=== PATIENT | male | born 1955 | race Caucasian/White ===

== ENCOUNTER 2017-09-02 19:58 | Outpatient (CLI) | payer MEDICARE, OTHER ==
[~2017-09-02 19:58] MED LIST: ATEN50TA PO; CALC-80 PO; CHOL400C8 PO; HYDR-34 PO; HYDR-3454 PO; IPRA4AER IH; LISI-556 PO; MTH750T PO; NAPR-243 PO; NAPR220C11 PO; ROSU5TAB; TRM50T PO
== END 2017-09-03 06:30 | disposition home or self-care (01) ==
LOC: SLEEP 19:58
PROVIDERS: ATTEND Nurse Practitioner Family
DX: G47.33 Obstructive sleep apnea (adult) (pediatric) (principal)
CPT/HCPCS: 95811

== ENCOUNTER 2017-11-25 05:59 | Inpatient (IN) | payer MEDICARE, OTHER ==
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
[~2017-11-25] VITALS: Ht 182.9 cm; Wt 148.0 kg
[~2017-11-25 05:59] MED LIST changes: +ALBU2.5V4 NEB; +BUDE10.2 IH; +CALC-50 PO; +CYCL5.5D OU; +GLUC1CAP14 PO; +IPRA3AMP31 IH
[2017-11-25 06:10] VITALS: BP 140/73
[2017-11-25] MEDS: LACTATED RINGERS 1,000 ML IV PRN ×2 (06:25→08:00)
[2017-11-25] MEDS ORDERED: CEFUROXIME 1.5 GM (ZINACEF) VIAL ONE ×2 (06:46→06:48)
[2017-11-25] MEDS ORDERED: NS (IVPB) 50 ML ONE (06:48)
[2017-11-25] MEDS ORDERED: fentaNYL INJECTION 100 MCG/2 ML AMP ONE ×2 (06:52→08:27)
[2017-11-25] MEDS ORDERED: MIDAZOLAM 2 MG/2 ML (VERSED) VIAL ONE (06:52)
--- NOTE | 2017-11-25 07:24 | Progress Note-Pre Operative ---
Pre-Operative Progress Note H&P Reviewed The H&P was reviewed, patient examined and no changes noted. Date Seen by Provider: Nov 25, 2017 Time Seen by Provider: 07:11 Date H&P Reviewed: Nov 25, 2017 Time H&P Reviewed: 07:11 Pre-Operative Diagnosis: left knee primary osteoarthritis MARLI BRANDON MD Nov 25, 2017 07:24
[2017-11-25] MEDS ORDERED: LIDOCAINE PF 2% 5 ML (XYLOCAINE) VIAL ONE (07:25)
[2017-11-25] MEDS ORDERED: proPOfol 200 MG/20 ML (DIPRIVAN) VIAL IV ONE (07:25)
[2017-11-25] MEDS: NS IV 1000 ML 1,000 ML IV SCH ×2 (07:25→11:02)
[2017-11-25] MEDS ORDERED: ROPIVACAINE 5MG/ML 30ML VIAL ONE (07:25)
--- NOTE | 2017-11-25 07:25 | Progress Note-Post Operative ---
Post-Operative Progess Note Surgeon (s)/Hvac Sheet Metal Installer (s) Surgeon MARLI BRANDON MD Hvac Sheet Metal Installer: Jose Alcantara Pre-Operative Diagnosis left knee primary osteoarthritis Post-Operative Diagnosis left knee primary osteoarthritis Procedure & Operative Findings Date of Procedure 11/25/17 Procedure Performed/Findings left total knee arthroplasty Anesthesia Type GETA plus regional Estimated Blood Loss Estimated blood loss (mL): minimal Specimens/Packing Specimens Removed none Packing: none MARLI BRANDON MD Nov 25, 2017 07:25
[2017-11-25] MEDS ORDERED: OXYC1TAB87 PO (07:27)
--- NOTE | 2017-11-25 07:29 | D/C HH Face to Face Order ---
D/C Face to Face Orders Instructions for Patient Patient Instructions/FollowUp: left total knee arthroplasty Physician to follow Patient: 3 weeks Discharge Diet for Home: Regular Diet Patient Data-Allergies,Ht & Wt Patient Allergies: Coded Allergies: No Known Drug Allergies (Unverified , 11/18/17) Height (Feet): 6 Height (Inches): 0.00 Weight (Pounds): 326 Weight (Ounces): 6.0 Home Health Need/Face to Face Date of Face to Face: Nov 25, 2017 Clinical Findings: Instability, Muscle weakness, Pain with ambulation, Unsteady gait I have seen Pt [id number]: Yes Discharged To: Home Diagnosis/Conditions: left total knee arthroplasty Patient is Homebound due to: Mercedes fall risk due to instabilty, Muscle weakness , Pain w/ambulation Homebound Status Due to the above stated illness, injury or surgical procedure (medical condition or diagnosis) and associated clinical findings, the patient is homebound because of his/her inability to leave home except with aid of a supportive device and/or person AND leaving the home requires a considerable and taxing effort or is medically contraindicated. Pt req the following assistanc: [facility] Health Nursing Orders Home Health Services Order: Physical Therapy-Evaluate & Treat Home Health Infusion Therapy Line Start Date: Nov 25, 2017 Line Start Time: 0620 Line Type: Peripheral IV Site Location: Hand Therapy Orders Therapy Orders: Physical Therapy, PT to assess for OT (DC left knee tiburcio and apply steri strips 12/09/17) Certify Stmt I certify that this patient is under my care and that I, a nurse practitioner or a physician; a public aid eligibility assistant working with me, had a face to face encounter that - meets the physician face to face encounter requirements with this patient as dated. MARLI BRANDON MD Nov 25, 2017 07:29
[2017-11-25] MEDS ORDERED: diphenhydrAMINE 50 MG/ML INJ (BENADRYL) IVP PRN (07:30)
[2017-11-25] MEDS ORDERED: INTRA-ARTICULAR IU ONE ×5 (07:30)
[2017-11-25] MEDS ORDERED: ONDANSETRON 4 MG/2 ML (SDV) Z0FRAN IVP PRN ×2 (07:30→09:30)
[2017-11-25] MEDS ORDERED: ACETAMINOPHEN 325 MG TABLET PO PRN (07:30)
[2017-11-25] MEDS ORDERED: SEVOFLURANE (ULTANE) 15 ML INHAL SOLN ONE ×7 (08:14→09:33)
[2017-11-25] MEDS ORDERED: TRANEXAMIC ACID 100 MG/ML 10 ML INJECTION IV ONE (08:14)
[2017-11-25] MEDS ORDERED: DEXAMETHASONE 10 MG/ML (DECADRON) 1 ML VIAL ONE (08:19)
[2017-11-25] MEDS ORDERED: ROCURONIUM 10 MG/ML 5 ML SYRINGE IV ONE (08:20)
[2017-11-25] MEDS ORDERED: HYDROmorphone 2 MG/ML VIAL (DILAUDID) IV ONE (09:30)
[2017-11-25] MEDS ORDERED: CEFUROXIME 1.5 GM/NS 50 ML IVPB IV ONE ×2 (09:30)
[2017-11-25] MEDS ORDERED: MEPERIDINE (DEMEROL) INJ 50 MG/ML IVP ONE (09:30)
[2017-11-25] MEDS: morphine INJ 10 MG/ML 1ML (SYR OR VIAL) IVP ONE (09:46)
--- NOTE | 2017-11-25 10:04 | Diagnostic Imaging Report ---
EXAMINATION: Left knee radiographs, two views. COMPARISON: None. HISTORY: 62-year-old male, left total knee replacement. FINDINGS: There are anterior skin tiburcio. There is a left total knee prosthesis. The hardware appears intact. Intra-articular and soft tissue gas likely reflects recent postoperative state of the patient. There is no identified acute fracture. There is thickening of the visualized fibular diaphyseal cortex. There are vascular calcifications noted. IMPRESSION: 1. Left total knee prosthesis without identified complication. Dictated by: Dictated on workstation # [id number]
[2017-11-25 10:30] VITALS: BP 128/60
[2017-11-25] MEDS: morphine PCA 30 MG/30 ML VIAL IV PRN (11:03)
[2017-11-25] MEDS: oxyCODONE/APAP 5/325MG (PERCOCET 5) TABLET PO PRN ×3 (11:18→20:36)
--- NOTE | 2017-11-25 11:29 | Progress Note-Standard ---
Standard Progress Note Progress Notes/Assess & Plan Date Seen by Provider: Nov 25, 2017 Time Seen by Provider: 09:30 Progress/Assessment & Plan post op check no complaints radiographs--HW well positioned without fracture LLE--intact DF and PF of toes and ankle. Sensation intact throughout. Brisk cap refill with 2 plus DP pules s/p LTKA mobilize as able MARLI BRANDON MD Nov 25, 2017 11:29
[2017-11-25 12:00] VITALS: BP 131/64
--- NOTE | 2017-11-25 14:18 | OPERATIVE REPORT ---
DATE OF SERVICE: 11/25/2017 PREOPERATIVE DIAGNOSIS: Left knee primary osteoarthritis. POSTOPERATIVE DIAGNOSIS: Left knee primary osteoarthritis. PROCEDURE: Left total knee arthroplasty. SURGEON: Jameel Cruz MD. LIFT MECHANIC: PEDRO Nazario, who assisted throughout the procedure, provided retraction, patient positioning and wound closure. ANESTHESIA: General endotracheal plus adductor canal block by Eduardo Jose CRNA. TOURNIQUET TIME: 75 minutes at 300 mmHg. ESTIMATED BLOOD LOSS: Minimal. DRAINS: None. COMPLICATIONS: None. POSTOPERATIVE PLAN: Routine protocol. The patient was transferred to the recovery room, awake and in stable condition. MATERIALS: MicroPort cemented size 6 femur, cemented size 6 tibia with a 10 mm insert and a cemented size 35 patellar button. STATEMENT OF MEDICAL NECESSITY: The patient is a 62-year-old gentleman with longstanding progressive left knee pain. Radiographs revealed severe medial and patellofemoral arthrosis. He has undergone treatment with injections, arthroscopy, anti-inflammatories and activity modifications without relief. Due to functional impairment and failure to improve with conservative measures, the patient elected to proceed with surgical intervention. DESCRIPTION OF PROCEDURE: After risks and benefits of procedure were discussed and questions were answered, an informed consent was signed and placed on the chart. The operative site was confirmed in the preoperative holding area initialed by the surgeon. The patient was transported to the operating room. After adequate levels of regional plus general endotracheal anesthetic were obtained, timeout was called confirming the operative site. The left lower extremity was then prepped and draped in the usual sterile fashion. With the leg elevated and the knee flexed, tourniquet was inflated to 300 mmHg. A standard anterior approach was utilized. Hemostasis was obtained with cautery. A medial parapatellar arthrotomy was performed leaving 1 cm cuff on the patella for later reattachment. A portion of the fat pad was resected. A subperiosteal release was then carefully performed on the proximal medial tibia, being careful to stay on the bony surface. The ACL was resected. The intramedullary guide was passed into the femur. The distal cutting block was placed. Distal cut was made and the femur was sized to a size 6. The 6 cutting block was placed parallel to the epicondylar axis and the cuts were made from posterior to anterior. Subperiosteal release was then carefully performed on the posterior distal femur being careful to stay on the bony surface. The intramedullary guide was then passed into the tibia and the cutting block was placed. The drop abdullahi transected the intermalleolar axis and the cut was made. A 6 baseplate was placed and provided excellent coverage. Drop abdullahi transected the intermalleolar axis and this was prepared with a drill and keel punch. The femoral trial was placed and the trochlear cut was made. The patella was prepared by resecting 10 mm off the undersurface of the patella. The peg guide was placed and the peg holes were drilled. The 35 trial was placed. Full extension was easily obtained, 120 degrees of flexion with gravity was easily obtained. There was no anterior/posterior or medial/lateral laxity in flexion or extension. The trials were removed. The joint was irrigated with pulse lavage. A periarticular block was placed in the posterior capsule, medial and lateral retinaculum and extensor mechanism as well as the subcutaneous tissues. Bone ends were irrigated and dried. The tibial baseplate was cemented into position. Excessive cement was removed. Superior surface was irrigated and dried and the polyethylene insert was placed. The distal femur was irrigated and dried and the femoral prosthesis was cemented into position. Excessive cement was removed. The knee was brought in full extension until the cement cured. The undersurface of patella was irrigated and dried and the patellar button was cemented in position. Excessive cement was removed. Once the cement had cured, the undersurface of the patella was irrigated and dried. The patellar button was cemented in position. Once the cement had cured, the knee was taken through range of motion. Full extension was easily obtained, 120 degrees of flexion with gravity was easily obtained. There was no anterior/posterior or medial/lateral laxity in flexion or extension. The joint was further irrigated with pulse lavage. The arthrotomy was closed with #2 Tevdek in [id number]-mx-dddoc interrupted fashion. The knee was flexed. The patella tracked well. There was no undue tension at the repair site. The subcutaneous tissues were irrigated and dried. A 0 Vicryl was used for deep subcutaneous tissue, 2-0 Vicryl for the superficial subcutaneous tissue, and tiburcio used on the skin. Soft dressing was applied and the patient was transferred to the recovery room awake in stable condition after the tourniquet was deflated. Job ID: [id number] DocumentID: [id number] Dictated Date: 11/25/2017 09:31:18 Web Methods Developer Date: 11/25/2017 14:18:21 Dictated By: JAMEEL CRUZ MD
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
[2017-11-25] MEDS: CEFUROXIME INJECTION 750 MG in NS (IVPB) 50 ML IV SCH (14:54)
[2017-11-25] MEDS: SENNA W/DOCUSATE (SENOKOT S) TABLET PO SCH ×2 (14:55→20:36)
[2017-11-25 16:43] VITALS: BP 143/63
[2017-11-25 19:46] VITALS: BP 134/63
[2017-11-26] MEDS: NS IV 1000 ML 1,000 ML IV SCH ×2 (00:05→12:32)
[2017-11-26] MEDS: CEFUROXIME INJECTION 750 MG in NS (IVPB) 50 ML IV SCH (00:05)
[2017-11-26 00:43] VITALS: BP 143/65
[2017-11-26 04:39] VITALS: BP 138/65
[2017-11-26] MEDS: oxyCODONE/APAP 5/325MG (PERCOCET 5) TABLET PO PRN ×9 (04:56→22:27)
[2017-11-26 06:02] LABS: HEMOGLOBIN 11.2 G/DL (13.3-17.7)
[2017-11-26] MEDS: MULTIVIT W/MINERALS TAB (THERAGRAN M) PO SCH (06:13)
--- NOTE | 2017-11-26 07:52 | Anesthesia-General Post-Op ---
General Patient Condition Mental Status/LOC: Same as Preop Cardiovascular: Satisfactory Nausea/Vomiting: Absent Respiratory: Satisfactory Pain: Controlled Complications: Absent Post Op Complications Complications None Follow Up Care/Instructions Patient Instructions None needed. Anesthesia/Patient Condition Patient Condition Patient is doing well, no complaints, stable vital signs, no apparent adverse anesthesia problems. No complications reported per nursing. D/C home per [facility] [place] Criteria: Yes NELLY HOLLAND CRNA Nov 26, 2017 07:52
--- NOTE | 2017-11-26 07:53 | Progress Note-Standard ---
Standard Progress Note Progress Notes/Assess & Plan Date Seen by Provider: Nov 26, 2017 Time Seen by Provider: 07:52 Progress/Assessment & Plan post op check no complaints radiographs--HW well positioned without fracture LLE--intact DF and PF of toes and ankle. Sensation intact throughout. Brisk cap refill with 2 plus DP pules s/p LTKA mobilize as able Final Diagnosis No complaints Vital Signs Date Time Temp Pulse Resp B/P (MAP) Pulse Ox O2 Delivery O2 Flow Rate FiO2 11/26/17 07:42 94 Nasal Cannula 4.00 11/26/17 06:00 19 11/26/17 04:39 98.5 62 19 138/65 (89) 97 Nasal Cannula 4.00 11/26/17 02:22 96 NIV CPAP 4.00 11/26/17 00:43 98.7 65 19 143/65 (91) 97 Nasal Cannula 4.00 11/25/17 22:55 96 NIV CPAP 4.00 11/25/17 20:30 Nasal Cannula 4.00 11/25/17 19:46 97.4 68 20 134/63 (86) 95 Nasal Cannula 4.00 11/25/17 18:43 96 Nasal Cannula 4.00 11/25/17 16:43 97.5 61 20 143/63 (89) 95 Nasal Cannula 4.00 11/25/17 16:12 94 Nasal Cannula 4.00 11/25/17 12:00 97.3 70 20 131/64 (86) 97 Nasal Cannula 4.00 11/25/17 11:03 18 11/25/17 10:40 94 Nasal Cannula 4.00 11/25/17 10:30 97.3 69 20 128/60 (82) 95 Nasal Cannula 4.00 I & O 11/26/17 07:00 Intake Total 4040 ml Output Total 1775 ml Balance 2265 ml Laboratory Tests Test 11/26/17 05:36 Range/Units Hemoglobin 11.2 L 13.3-17.7 G/DL Hematocrit 35 L 40-54 % LLE--dressing intact. NVI distally . No calf tenderness. Neg Hang's s/p LTKA Mobilize MARLI BRANDON MD Nov 26, 2017 07:53
[2017-11-26 08:00] VITALS: BP 120/55
[2017-11-26] MEDS ORDERED: ENOXAPARIN 30 MG/0.3 ML (LOVENOX) SYR SC SCH (08:00)
[2017-11-26] MEDS: ASPIRIN E.C. 81 MG (ECOTRIN) TAB PO SCH (08:05)
[2017-11-26] MEDS: SENNA W/DOCUSATE (SENOKOT S) TABLET PO SCH ×2 (08:05→20:25)
[2017-11-26] MEDS: ENOXAPARIN 40 MG/0.4 ML (LOVENOX) SYR SC SCH ×2 (08:08→20:24)
--- NOTE | 2017-11-26 09:43 | Consultation ---
History of Present Illness History of Present Illness Patient Consulted On(bronwyn/time) 11/26/17 09:38 Date Seen by Provider: Nov 26, 2017 Time Seen by Provider: 07:00 Reason for Visit: medical management- PCP consult History of Present Illness 62 yo M admitted for left knee replacement. He does have history of COPD, htn, obesity. He has had trouble exercising due to osteoarthritis causing knee pain. He has had a previous right knee replacement. Injections, exercise and po medications have not been enough in controling his pain which is reason for yesterday's surgery. Patient reports his "new" left knee hurts as expected. He is using a gait belt to manually bend his knee. The machine didn't quite work as expected yesterday. He is motivated to go home tomorrow. reviewed his home medications will resume his symbicort and combivent as well as blood pressure medications. Allergies and Home Medications Allergies Coded Allergies: No Known Drug Allergies (Unverified , 11/18/17) Home Medications Albuterol/Ipratropium 4 Gm Aero, 1 PUFF IH Q4H PRN for SHORTNESS OF BREATH, ( Reported) Atenolol 50 Mg Tablet, 50 MG PO DAILY PRN for BP>110/60, (Reported) Budesonide/Formoterol Fumarate 10.2 Gm Hfa.aer.ad, 2 PUFF IH BID PRN for SHORTNESS OF BREATH, (Reported) Calcium Carbonate/Vitamin D3 1 Each Tablet, 1 TAB PO 1200,2100, (Reported) Cyclosporine 5.5 Ml Drops, 1 DROP OU HS, (Reported) Gluc HCl/Csa/Rodríguez Hy/Hyalur AC 1 Each Capsule, 1 CAP PO 1200,2100, (Reported) Ipratropium/Albuterol Sulfate 3 Ml Ampul.neb, 3 ML IH Q4H PRN for SHORTNESS OF BREATH, (Reported) Oxycodone HCl/Acetaminophen 1 Each Tablet, 1 EACH PO Q4H Prescribed by: MARLI BRANDON on 11/25/17 0702 Patient Home Medication List Home Medication List Reviewed: Yes Past Fbraefe-Lyhgxj-Ctqhpn Hx Patient Social History Alcohol Use: Occasionally Uses Recreational Drug Use: Yes (1 PPD) Smoking Status: Current Everyday Smoker Type Used: Cigarettes Recent Foreign Travel: No Contact w/Someone Who Travel: No Recent Infectious Disease Expo: No Recent Hopitalizations: No Immunizations Up To Date Date of Pneumonia Vaccine: Jan 07, 2016 Date of Influenza Vaccine: Jan 31, 2014 Seasonal Allergies Seasonal Allergies: Yes Past Medical History Surgeries: Yes (T&A,bilat knee scope,CATARACTS, BACK, GANGLION CYST) Respiratory: Yes (MOSTLY ALLERGY RELATED) Sleep Apnea, COPD Currently Using CPAP: Yes (2L O2 NOC) Cardiac: Yes (HEART CATH 2010-CLEAR) Hypertension Neurological: No Reproductive Disorders: No Sexually Transmitted Disease: No HIV/AIDS: No Genitourinary: No Gastrointestinal: No Musculoskeletal: Yes (NUMBNESS RIGHT LEG, STENOSIS) Chronic Back Pain Endocrine: No HEENT: Yes (GLASSES) Cataract Loss of Vision: Bilateral Hearing Impairment: Denies Cancer: No Psychosocial: No Integumentary: No Blood Disorders: No Adverse Reaction/Blood Tranf: No (N/A) Family Medical History Empha FHx: emphysema 19 FATHER Review of Systems Review of Systems General: No Chills, No Night Sweats HEENT: No Head Aches, No Visual Changes, No Eye Pain Pulmonary: No Dyspnea, No Cough Cardiovascular: No: Chest Pain, Palpitations, Orthopnea Gastrointestinal: No: Nausea, Vomiting, Abdominal Pain Genitourinary: No Dysuria Musculoskeletal: leg pain (left knee); No: neck pain, shoulder pain Neurological: Weakness; No: Confusion Physical Exam Vital Signs Vital Signs Date Time Temp Pulse Resp B/P (MAP) Pulse Ox O2 Delivery O2 Flow Rate FiO2 11/26/17 22:10 97 Nasal Cannula 4.00 11/26/17 20:15 Nasal Cannula 2.00 11/26/17 19:38 97.7 68 20 149/67 (94) 98 Nasal Cannula 2.00 11/26/17 19:24 97 Nasal Cannula 4.00 11/26/17 18:00 1 11/26/17 17:44 16 11/26/17 16:00 97.7 67 16 127/60 (82) 99 Nasal Cannula 4.00 11/26/17 14:52 99 Nasal Cannula 4.00 11/26/17 12:00 97.5 66 20 144/65 (91) 98 Nasal Cannula 4.00 11/26/17 08:00 Nasal Cannula 2.00 11/26/17 08:00 98.0 68 20 120/55 (76) 95 Nasal Cannula 4.00 11/26/17 07:42 94 Nasal Cannula 4.00 11/26/17 06:00 19 11/26/17 04:39 98.5 62 19 138/65 (89) 97 Nasal Cannula 4.00 11/26/17 02:22 96 NIV CPAP 4.00 11/26/17 00:43 98.7 65 19 143/65 (91) 97 Nasal Cannula 4.00 I & O 11/26/17 07:00 Intake Total 4040 ml Output Total 1775 ml Balance 2265 ml Height, Weight, BMI Height: 6'0.00" Weight: 326lbs. 6.0oz. 148.668199eu; 44.3 BMI Method:Stated General Appearance: No Apparent Distress, WD/WN HEENT: PERRL/EOMI Neck: Non Tender, Supple Respiratory: Chest Non Tender, Lungs Clear, No Accessory Muscle Use, No Respiratory Distress, Decreased Breath Sounds (bases), Rhonci (throughout) Cardiovascular: Regular Rate, Rhythm Gastrointestinal: Normal Bowel Sounds, Non Tender, Soft Rectal: Deferred Back: Normal Inspection, No CVA Tenderness Extremity: Normal Capillary Refill, Non Tender, No Calf Tenderness Neurologic/Psychiatric: Alert, Oriented x3, No Motor/Sensory Deficits, Normal Mood/Affect Skin: Warm/Dry Assessment/Plan Assessment/Plan Assessment and Plan 62 yo M Left knee osteoarthritis- s/p left knee replacement 11/25/17 (M54.5) Low back pain Chronic- continue staying active, prn apap (G47.33) Obstructive sleep apnea (adult) (pediatric) Chronic - oxygen, CPAP J44.9 COPD- continue home medications- symbicort, combivent prn at baseline respiratory status- continue IS (I10) Essential (primary) hypertension- continue home medications (E66.8) Other obesity- encourage weight loss through healthy diet and exercise. Dispo: will follow along during his stay- appreciation the consultation. expect his overall health to improve with this knee replacement- hopefully allowing him to walk/exercise more. Clinical Quality Measures DVT/VTE Risk/Contraindication: Risk Factor Score Per Nursin RFS Level Per Nursing on Admit: 4+=Very High TYLER YEE MD Nov 26, 2017 09:43
[2017-11-26] MEDS ORDERED: ATENOLOL 50 MG (TENORMIN) TAB PO PRN (09:45)
--- NOTE | 2017-11-26 09:52 | Physical Therapy Daily Note ---
PT Daily Note-Current Subjective Patient is very agreeable to participate with PT. Pain Numeric Pain Scale: 5-Moderate Pain Location: Left Location Body Site: Knee Pain Description: Acute Mental Status Patient Orientation: Normal For Age Attachments: Polar Pack, IV Transfers Functional [place] Measure 0=Not Assessed/NA 4=Minimal Assistance 1=Total Assistance 5=Supervision or Setup 2=Maximal Assistance 6=Modified [place] 3=Moderate Assistance 7=Complete IndependenceIRFPAI Quality Coding Scale 6 Independent with activity with or without an assistive device 5 Patient requires set up or clean up by helper. Patient completes activity by themselves 4 Supervision or touching assist (CGA). [place] provide cues , steadying assist 3 The helper provides less than half the effort to complete the activity 2 The helper provides more than half the effort to complete the activity 1 Dependent. The helper does all the effort to complete an activity 7 Patient refused to complete or attempt activity 9 The patient did not perform the activity before the current illness or injury 88 Not attempted due to Medical conditions or safety concerns Transfers (B, C, W/C) (FIM): 6 Scootin Rollin Supine to/from Sit: 6 Sit to/from Stand: 6 Bed to/from Chair: 6 Weight Bearing Right Lower Extremity: Right Full Weight Bearing Left Lower Extremity: Left Weight Bearing/Tolerated Gait Training Gait (FIM): 5 Distance (FIM): 3=150 ft Distance: 225' Gait Level of Assist: 5 Gait Assistive Device: FWW slow, steady, antalgic gait sequence Exercises Supine Ex: Ankle pumps, Quad Set, Heel Slides, Straight leg raise Supine Reps: 15 Seated Therapy Exercises: Long arc quads Seated Reps: 15 Assessment Patient tolerated treatment well and is up in recliner with needs met. PT to increase activity as tolerated by patient. PT Short Term Goals Short Term Goals Time Frame: Dec 02, 2017 Transfers (B,C,W/C) (FIM): 5 Gait (FIM): 5 Gait Distance Comment: 50' Gait Level of Assist: 5 Gait Assistive Device: FWW PT Plan Treatment/Plan Treatment Plan: Continue Plan of Care Treatment Plan: Bed Mobility, Education, Functional Activity Yahaira, Functional Strength, Gait, Safety, Therapeutic Exercise, Transfers Treatment Duration: Dec 02, 2017 Frequency: 11 times per week Estimated Hrs Per Day: .25 hour per day (15-30') Patient and/or Family Agrees t: Yes Time/GCodes Time In: 832 Time Out: 858 Total Billed Treatment Time: 26 Total Billed Treatment 1 visit EX 14 min GT 12 min HEBER TORRES PT Nov 26, 2017 09:52
[2017-11-26 12:00] VITALS: BP 144/65
--- NOTE | 2017-11-26 14:44 | Occ Therapy Progress Note ---
Therapy Progress Note OT order received. Chart reviewed. Pt. up in chair. Spoke with pt. and spouse. Educated them on what OT does. Pt. has had a back surgery as well as another knee surgery. Pt. reports that he has adaptive ADL equipment at home, and that his spouse can assist him as needed. Spouse agrees with this and says that pt. is eager to return home. Pt. reports having no significant difficulty at this time. OT offers to assist pt .with shower, toileting, anything. Pt. states that his spouse is going to do it. Spouse concurred. OT retrieved bathing items for pt. and spouse. No OT warranted at this time. 1, visit [id number] Discharge pt. JOSEFINA MATSON OT Nov 26, 2017 14:44
--- NOTE | 2017-11-26 14:46 | Physical Therapy Daily Note ---
PT Daily Note-Current Subjective Patient agrees to PT. Pain Numeric Pain Scale: 7 Location: Left Location Body Site: Knee Pain Description: Acute Mental Status Patient Orientation: Normal For Age Attachments: IV Transfers Functional [place] Measure 0=Not Assessed/NA 4=Minimal Assistance 1=Total Assistance 5=Supervision or Setup 2=Maximal Assistance 6=Modified [place] 3=Moderate Assistance 7=Complete IndependenceIRFPAI Quality Coding Scale 6 Independent with activity with or without an assistive device 5 Patient requires set up or clean up by helper. Patient completes activity by themselves 4 Supervision or touching assist (CGA). [place] provide cues , steadying assist 3 The helper provides less than half the effort to complete the activity 2 The helper provides more than half the effort to complete the activity 1 Dependent. The helper does all the effort to complete an activity 7 Patient refused to complete or attempt activity 9 The patient did not perform the activity before the current illness or injury 88 Not attempted due to Medical conditions or safety concerns Transfers (B, C, W/C) (FIM): 6 Scootin Rollin Supine to/from Sit: 6 Sit to/from Stand: 6 Weight Bearing Right Lower Extremity: Right Full Weight Bearing Left Lower Extremity: Left Weight Bearing/Tolerated Gait Training Gait (FIM): 6 Distance (FIM): 3=150 ft Distance: 260' Gait Level of Assist: 6 Gait Assistive Device: FWW very slow and antalgic Exercises Supine Ex: Ankle pumps, Quad Set, Heel Slides, Straight leg raise Supine Reps: 15 (2 sets) Seated Therapy Exercises: Long arc quads Seated Reps: 15 (2 sets) Treatments CPM 0-[address] with polar pack Assessment Patient is in bed with CPM and polar pack in place. Patient is progressing with treatment plan. PT Short Term Goals Short Term Goals Time Frame: Dec 02, 2017 Transfers (B,C,W/C) (FIM): 5 Gait (FIM): 5 Gait Distance Comment: 50' Gait Level of Assist: 5 Gait Assistive Device: FWW PT Plan Treatment/Plan Treatment Plan: Continue Plan of Care Treatment Plan: Bed Mobility, Education, Functional Activity Yahaira, Functional Strength, Gait, Safety, Therapeutic Exercise, Transfers Treatment Duration: Dec 02, 2017 Frequency: 11 times per week Estimated Hrs Per Day: .25 hour per day (15-30') Patient and/or Family Agrees t: Yes Time/GCodes Time In: 1300 Time Out: 1340 Total Billed Treatment Time: 40 Total Billed Treatment 1 visit EX x 2 25 min GT 15 min HEBER TORRES PT Nov 26, 2017 14:46
[2017-11-26 16:00] VITALS: BP 127/60
[2017-11-26] MEDS: morphine PCA 30 MG/30 ML VIAL IV PRN (17:44)
[2017-11-26 19:38] VITALS: BP 149/67
[2017-11-27 00:23] VITALS: BP 138/64
[2017-11-27] MEDS: oxyCODONE/APAP 5/325MG (PERCOCET 5) TABLET PO PRN ×9 (00:55→20:16)
[2017-11-27] MEDS: NS IV 1000 ML 1,000 ML IV SCH (01:24)
[2017-11-27 04:31] VITALS: BP 143/66
[2017-11-27] MEDS: MULTIVIT W/MINERALS TAB (THERAGRAN M) PO SCH (06:13)
[2017-11-27 06:15] LABS: HEMOGLOBIN 10.9 G/DL (13.3-17.7)
--- NOTE | 2017-11-27 06:51 | Progress Note-Standard ---
Standard Progress Note Progress Notes/Assess & Plan Date Seen by Provider: Nov 27, 2017 Time Seen by Provider: 06:47 Progress/Assessment & Plan Patient reports no c/o. POD 2 vss, Tmax 97.8 Lt. knee incision well approx with no warmth erythema or drainage. Calf soft and nontender with negative Hang's sign. Intact PF, DF and EHL Doing well S/P Lt. TKA Continue: Mobilize OT/PT DVT prophylaxis Dressing was changed today by myself DC Iv and stake setter Hep loc morphine prn severe pain. AMISH ARMAS Nov 27, 2017 06:51
[2017-11-27 08:00] VITALS: BP 131/61
[2017-11-27] MEDS: ASPIRIN E.C. 81 MG (ECOTRIN) TAB PO SCH (08:44)
[2017-11-27] MEDS: SENNA W/DOCUSATE (SENOKOT S) TABLET PO SCH ×2 (08:44→20:16)
[2017-11-27] MEDS: ENOXAPARIN 40 MG/0.4 ML (LOVENOX) SYR SC SCH ×2 (08:46→19:32)
--- NOTE | 2017-11-27 08:59 | Progress Note (SOAP) ---
Subjective Subjective Date Seen by Provider: Nov 27, 2017 Time Seen by Provider: 08:56 62 yo M No overnight events. Doing well. Pain is present- ready for a pain pill. Looking forward to going home tomorrow. Denies fevers,chills, nausea, vomiting. Review of Systems General: No Chills, No Night Sweats HEENT: No Head Aches, No Visual Changes, No Eye Pain Pulmonary: No Dyspnea, No Cough Cardiovascular: No: Chest Pain, Palpitations, Orthopnea Gastrointestinal: No: Nausea, Vomiting, Abdominal Pain Genitourinary: No Dysuria Musculoskeletal: leg pain (left knee); No: neck pain, shoulder pain Neurological: Weakness; No: Confusion Objective Exam Vital Signs Vital Signs Date Time Temp Pulse Resp B/P (MAP) Pulse Ox O2 Delivery O2 Flow Rate FiO2 11/27/17 07:36 19 11/27/17 06:09 19 11/27/17 04:31 97.8 84 19 143/66 (91) 96 Nasal Cannula 2.00 11/27/17 02:47 95 NIV CPAP 2.00 11/27/17 00:23 97.4 73 16 138/64 (88) 97 Nasal Cannula 2.00 11/26/17 22:10 94 Nasal Cannula 2.00 11/26/17 20:15 Nasal Cannula 2.00 11/26/17 19:38 97.7 68 20 149/67 (94) 98 Nasal Cannula 2.00 11/26/17 19:24 97 Nasal Cannula 2.00 11/26/17 18:00 1 11/26/17 17:44 16 11/26/17 16:00 97.7 67 16 127/60 (82) 99 Nasal Cannula 4.00 11/26/17 14:52 99 Nasal Cannula 4.00 11/26/17 12:00 97.5 66 20 144/65 (91) 98 Nasal Cannula 4.00 I & O 11/27/17 07:00 Intake Total 2580 ml Output Total 2825 ml Balance -245 ml General Appearance: No Apparent Distress, WD/WN HEENT: PERRL/EOMI Neck: Non Tender, Supple Respiratory: Chest Non Tender, Lungs Clear, No Accessory Muscle Use, No Respiratory Distress, Decreased Breath Sounds (bases), Rhonci (throughout) Cardiovascular: Regular Rate, Rhythm Gastrointestinal: Normal Bowel Sounds, Non Tender, Soft Rectal: Deferred Back: Normal Inspection, No CVA Tenderness Extremity: Normal Capillary Refill, Non Tender, No Calf Tenderness Neurologic/Psychiatric: Alert, Oriented x3, No Motor/Sensory Deficits, Normal Mood/Affect Skin: Warm/Dry Results Lab Laboratory Tests 11/27/17 05:40: Hemoglobin 10.9L, Hematocrit 34L Assessment/Plan Assessment/Plan Assessment and Plan 62 yo M Left knee osteoarthritis- s/p left knee replacement 11/25/17 (M54.5) Low back pain Chronic- continue staying active, prn apap (G47.33) Obstructive sleep apnea (adult) (pediatric) Chronic - oxygen, CPAP J44.9 COPD- continue home medications- symbicort, combivent prn at baseline respiratory status- continue IS (I10) Essential (primary) hypertension- continue home medications (E66.8) Other obesity- encourage weight loss through healthy diet and exercise. Dispo: will follow along during his stay- appreciation the consultation. expect his overall health to improve with this knee replacement- hopefully allowing him to walk/exercise more. From medical standpoint nothing from my view to keep him inpatient outside of his progress with PT to go home. Orthopedics to d/c when ready. Clinical Quality Measures DVT/VTE Risk/Contraindication: Risk Factor Score Per Nursin RFS Level Per Nursing on Admit: 4+=Very High TYLER YEE MD Nov 27, 2017 08:59
[2017-11-27] MEDS: morphine INJ 4 MG/ML 1 ML (VIAL/SYRINGE) IVP PRN ×2 (09:23→19:04)
--- NOTE | 2017-11-27 10:22 | Physical Therapy Daily Note ---
PT Daily Note-Current Subjective Patient agrees to PT. Pain Numeric Pain Scale: 8 Location: Left Location Body Site: Knee Pain Description: Acute Comment: with meds issued Mental Status Patient Orientation: Normal For Age Transfers Functional [place] Measure 0=Not Assessed/NA 4=Minimal Assistance 1=Total Assistance 5=Supervision or Setup 2=Maximal Assistance 6=Modified [place] 3=Moderate Assistance 7=Complete IndependenceIRFPAI Quality Coding Scale 6 Independent with activity with or without an assistive device 5 Patient requires set up or clean up by helper. Patient completes activity by themselves 4 Supervision or touching assist (CGA). [place] provide cues , steadying assist 3 The helper provides less than half the effort to complete the activity 2 The helper provides more than half the effort to complete the activity 1 Dependent. The helper does all the effort to complete an activity 7 Patient refused to complete or attempt activity 9 The patient did not perform the activity before the current illness or injury 88 Not attempted due to Medical conditions or safety concerns Transfers (B, C, W/C) (FIM): 6 Scootin Rollin Supine to/from Sit: 6 Sit to/from Stand: 6 Bed to/from Chair: 6 Weight Bearing Right Lower Extremity: Right Full Weight Bearing Left Lower Extremity: Left Weight Bearing/Tolerated Gait Training Gait (FIM): 6 Distance (FIM): 3=150 ft Distance: 275' x 2 Gait Level of Assist: 6 Gait Assistive Device: FWW ambulated with FWW and axillary crutches with slow, antalgic gait sequence Stair Training Stair Training: Handrails/: No handrail (utilized crutches) Stairs (FIM): 2 #of Steps: 3 Stairs: Pattern: Step to Level of Assist: 5 x 2 sets Exercises Seated Therapy Exercises: Ankle pumps, Long arc quads Seated Reps: 25 Assessment Patient requires time to complete all functional tasks and displays increase SOA with activity and requires recovery periods. Patient plans dismissal to home with spouse and home health tomorrow. PT Short Term Goals Short Term Goals Time Frame: Dec 02, 2017 Transfers (B,C,W/C) (FIM): 5 Gait (FIM): 5 Gait Distance Comment: 50' Gait Level of Assist: 5 Gait Assistive Device: FWW PT Plan Treatment/Plan Treatment Plan: Continue Plan of Care Treatment Plan: Bed Mobility, Education, Functional Activity Yahaira, Functional Strength, Gait, Safety, Therapeutic Exercise, Transfers Treatment Duration: Dec 02, 2017 Frequency: 11 times per week Estimated Hrs Per Day: .25 hour per day (15-30') Patient and/or Family Agrees t: Yes Time/GCodes Time In: 835 Time Out: 918 Total Billed Treatment Time: 43 Total Billed Treatment 1 visit FA x 2 25 min GT 18 min HEBER TORRES PT Nov 27, 2017 10:22
--- NOTE | 2017-11-27 14:09 | Physical Therapy Daily Note ---
PT Daily Note-Current Subjective Patient agrees to PT. Pain Numeric Pain Scale: 7 Location: Left Location Body Site: Knee Pain Description: Acute Mental Status Patient Orientation: Normal For Age Transfers Functional [place] Measure 0=Not Assessed/NA 4=Minimal Assistance 1=Total Assistance 5=Supervision or Setup 2=Maximal Assistance 6=Modified [place] 3=Moderate Assistance 7=Complete IndependenceIRFPAI Quality Coding Scale 6 Independent with activity with or without an assistive device 5 Patient requires set up or clean up by helper. Patient completes activity by themselves 4 Supervision or touching assist (CGA). [place] provide cues , steadying assist 3 The helper provides less than half the effort to complete the activity 2 The helper provides more than half the effort to complete the activity 1 Dependent. The helper does all the effort to complete an activity 7 Patient refused to complete or attempt activity 9 The patient did not perform the activity before the current illness or injury 88 Not attempted due to Medical conditions or safety concerns Transfers (B, C, W/C) (FIM): 6 Scootin Sit to/from Stand: 6 Weight Bearing Right Lower Extremity: Right Full Weight Bearing Left Lower Extremity: Left Weight Bearing/Tolerated Gait Training Gait (FIM): 6 Distance (FIM): 3=150 ft Distance: 300' x 2 Gait Level of Assist: 6 Gait Assistive Device: FWW reciprocal pattern/antalgic Exercises Supine Ex: Ankle pumps, Quad Set, Heel Slides, Straight leg raise Supine Reps: 15 (in recliner) Seated Therapy Exercises: Long arc quads Seated Reps: 20 Assessment Patient seen x 2 sessions due to toilet use. Patient progressing with treatment plan and will dismiss to home tomorrow with spouse and home health. PT Short Term Goals Short Term Goals Time Frame: Dec 02, 2017 Transfers (B,C,W/C) (FIM): 5 Gait (FIM): 5 Gait Distance Comment: 50' Gait Level of Assist: 5 Gait Assistive Device: FWW PT Plan Treatment/Plan Treatment Plan: Continue Plan of Care Treatment Plan: Bed Mobility, Education, Functional Activity Yahaira, Functional Strength, Gait, Safety, Therapeutic Exercise, Transfers Treatment Duration: Dec 02, 2017 Frequency: 11 times per week Estimated Hrs Per Day: .25 hour per day (15-30') Patient and/or Family Agrees t: Yes Time/GCodes Time In: 1255 Time Out: 1351 Total Billed Treatment Time: 25 Total Billed Treatment 1 visit ([id number]) EX 15 min 1 visit ([id number]) GT 10 min HEBER TORRES PT Nov 27, 2017 14:09
[2017-11-27] MEDS ORDERED: MILK OF MAGNESIA 400 MG/5 ML 30 ML UDC PO PRN (15:15)
[2017-11-27 16:08] VITALS: BP 159/75
[2017-11-28] VITALS: BP 164/74
[2017-11-28] MEDS: oxyCODONE/APAP 5/325MG (PERCOCET 5) TABLET PO PRN ×4 (00:56→10:32)
--- NOTE | 2017-11-28 00:59 | DISCHARGE SUMMARY ---
DATE OF SERVICE: DATE OF DISCHARGE: 11/28/2017. DIAGNOSES: 1. Left knee primary osteoarthritis. 2. Hypertension. 3. Lumbar disk disease. PROCEDURE: Left total knee arthroplasty. SUMMARY: The patient is a 62-year-old gentleman who underwent a left total knee arthroplasty on the day of admission. Postoperatively, he did very well. At the time of discharge, his wound was clean and dry. He had no calf tenderness. Negative [place] sign. He had attained independent status with physical therapy. His wound was clean and dry. He was tolerating his diet well and tolerating pain with oral pain medications. CONDITION AT DISCHARGE: Good. DISCHARGE DIET: Regular. FOLLOWUP: Followup is in 3 weeks. ACTIVITIES: Weightbear as tolerated with a walker or crutches. DISCHARGE MEDICATIONS: Home medications, Percocet as needed for pain and aspirin. FOLLOWUP: Followup is in 3 weeks. Job ID: [id number] DocumentID: [id number] Dictated Date: 11/27/2017 12:45:19 Sample Distributor Date: 11/28/2017 00:58:26 Dictated By: MARLI BRANDON MD
[2017-11-28 05:24] LABS: HEMOGLOBIN 10.9 G/DL (13.3-17.7)
[2017-11-28] MEDS: MULTIVIT W/MINERALS TAB (THERAGRAN M) PO SCH (06:07)
--- NOTE | 2017-11-28 07:40 | Progress Note-Standard ---
Standard Progress Note Progress Notes/Assess & Plan Date Seen by Provider: Nov 28, 2017 Time Seen by Provider: 07:39 Progress/Assessment & Plan post op check no complaints radiographs--HW well positioned without fracture LLE--intact DF and PF of toes and ankle. Sensation intact throughout. Brisk cap refill with 2 plus DP pules s/p LTKA mobilize as able Final Diagnosis No complaints Vital Signs Date Time Temp Pulse Resp B/P (MAP) Pulse Ox O2 Delivery O2 Flow Rate FiO2 11/28/17 00:00 99.0 72 21 164/74 (104) 97 Room Air 11/27/17 16:08 98.5 94 20 159/75 (103) 95 Room Air 11/27/17 08:00 97.9 79 20 131/61 (84) 93 Room Air 11/27/17 08:00 Nasal Cannula 2.00 I & O 11/28/17 07:00 Intake Total 3220 ml Output Total 1100 ml Balance 2120 ml Laboratory Tests Test 11/28/17 05:05 Range/Units Hemoglobin 10.9 L 13.3-17.7 G/DL Hematocrit 33 L 40-54 % LLE--dressing intact. No calf tenderness. Neg Hang's. s/p LTKA doing well DC home after PT today MARLI BRANDON MD Nov 28, 2017 07:40
[2017-11-28 08:00] VITALS: BP 145/63
[2017-11-28] MEDS: SENNA W/DOCUSATE (SENOKOT S) TABLET PO SCH (08:07)
[2017-11-28] MEDS: ASPIRIN E.C. 81 MG (ECOTRIN) TAB PO SCH (08:07)
[2017-11-28] MEDS: ENOXAPARIN 40 MG/0.4 ML (LOVENOX) SYR SC SCH (08:08)
--- NOTE | 2017-11-28 09:33 | Physical Therapy Daily Note ---
PT Daily Note-Current Subjective Patient review HEP without difficulty. Pain Numeric Pain Scale: 5-Moderate Pain Location: Left Location Body Site: Knee Pain Description: Acute Mental Status Patient Orientation: Normal For Age Transfers Functional [place] Measure 0=Not Assessed/NA 4=Minimal Assistance 1=Total Assistance 5=Supervision or Setup 2=Maximal Assistance 6=Modified [place] 3=Moderate Assistance 7=Complete IndependenceIRFPAI Quality Coding Scale 6 Independent with activity with or without an assistive device 5 Patient requires set up or clean up by helper. Patient completes activity by themselves 4 Supervision or touching assist (CGA). [place] provide cues , steadying assist 3 The helper provides less than half the effort to complete the activity 2 The helper provides more than half the effort to complete the activity 1 Dependent. The helper does all the effort to complete an activity 7 Patient refused to complete or attempt activity 9 The patient did not perform the activity before the current illness or injury 88 Not attempted due to Medical conditions or safety concerns Transfers (B, C, W/C) (FIM): 6 Scootin Rollin Supine to/from Sit: 6 Sit to/from Stand: 6 Weight Bearing Right Lower Extremity: Right Full Weight Bearing Left Lower Extremity: Left Weight Bearing/Tolerated Gait Training Gait (FIM): 6 Distance (FIM): 3=150 ft Distance: 300' x 2 Gait Level of Assist: 6 Gait Assistive Device: FWW slow, antalgic Exercises Supine Ex: Ankle pumps, Quad Set, Heel Slides, Straight leg raise Supine Reps: 10 Seated Therapy Exercises: Long arc quads Seated Reps: 10 Assessment Patient has attained all functional goals and will dismiss to home on this date. PT Short Term Goals Short Term Goals Time Frame: Dec 02, 2017 Transfers (B,C,W/C) (FIM): 5 Gait (FIM): 5 Gait Distance Comment: 50' Gait Level of Assist: 5 Gait Assistive Device: FWW PT Plan Treatment/Plan Treatment Plan: Continue Plan of Care Treatment Plan: Bed Mobility, Education, Functional Activity Yahaira, Functional Strength, Gait, Safety, Therapeutic Exercise, Transfers Treatment Duration: Dec 02, 2017 Frequency: 11 times per week Estimated Hrs Per Day: .25 hour per day (15-30') Patient and/or Family Agrees t: Yes Time/GCodes Time In: 905 Time Out: 922 Total Billed Treatment Time: 17 Total Billed Treatment 1 visit FA 17 min BRIAN,HEBER PT Nov 28, 2017 09:33
== END 2017-11-28 11:10 | disposition home health service (06) | DRG 470 ==
LOC: 4TH 05:59 → SURG 06:00 → 4TH 10:32
PROVIDERS: ADMIT Orthopaedic Surgery; ATTEND Orthopaedic Surgery
PROC: 0SRD0J9 Replacement of Left Knee Joint with Synthetic Substitute, Cemented, Open Approach (ICD-10-PCS; principal; 2017-11-25 07:27)
DX: M17.12 Unilateral primary osteoarthritis, left knee (principal); I10 Essential (primary) hypertension; M51.36 Other intervertebral disc degeneration, lumbar region; F17.210 Nicotine dependence, cigarettes, uncomplicated; J44.9 Chronic obstructive pulmonary disease, unspecified; E66.9 Obesity, unspecified; Z68.41 Body mass index [BMI] 40.0-44.9, adult; G47.33 Obstructive sleep apnea (adult) (pediatric)
CPT/HCPCS: 36415; 73560; 85014; 85018; 86850; 86900; 86901; 94664; 94760

== ENCOUNTER 2022-10-04 10:32 | Emergency (ER) | payer MEDICARE, OTHER ==
[~2022-10-04 10:32] MED LIST changes: +OXYC1TAB87 PO
[2022-10-04 10:50] VITALS: BP 123/88
--- NOTE | 2022-10-04 10:55 | Diagnostic Imaging Report ---
Clinical indications: Patient with left-sided weakness, slurred speech, and left-sided facial droop. Exam: Axial CT scan of the brain without IV contrast with coronal and sagittal reformatted images. Auto Exposure Controls were utilized during the CT exam to meet ALARA standards for radiation dose reduction. Comparison: None Findings: There is no evidence of acute cerebral infarct, intracranial hemorrhage, or gross mass effect. There is a small area of encephalomalacia involving the lateral right frontal lobe. The brain parenchymal volume appears appropriate for patient's age. There is normal mitchell-white matter distinction. There is no significant midline shift or herniation. There is no evidence of hydrocephalus. The basal cisterns are unremarkable. The skull, extracranial soft tissue, and orbits are unremarkable. There is mild mucosal thickening involving the ethmoid sinus. Temporal bones show no significant abnormality. Impression: There is no CT evidence of acute intracranial process. There is no dense vessel sign. Dictated by: Dictated on workstation # [id number]
--- NOTE | 2022-10-04 10:58 | ED Neurological Problem ---
General Chief Complaint: Neuro-Stroke Like Symptoms Stated Complaint: STROKE Nursing Triage Note: PT ARRIVED PER EMS, PT HAS SUDDEN ONSET OF L SIDED WEAKNESS. PT LKWT 0900 THIS AM. Source: patient Exam Limitations: no limitations History of Present Illness Date Seen by Provider: Oct 04, 2022 Time Seen by Provider: 10:44 Initial Comments 67-year-old male presents emergency department via EMS for left-sided weakness. This was reportedly abrupt onset at 9 AM when he was walking outside. On EMS arrival he had near flaccid paralysis of his left arm left leg, some left facial droop and slurred speech. He has never had similar symptoms in the past. On 's arrival she states that at 745 this morning when he got up he fell getting out of bed. He did not appear to hit his head and got up without difficulty. He did not have any weakness or pain at that time. At 9:00 he was walking outside on concrete and fell down due to left-sided weakness. He has no known injuries from the fall. He is not on any blood thinning medications. No history of hemorrhage or tumors. Blood sugar in route was 110. All other systems reviewed and negative except documented per HPI. Voice recognition software was used to help create this chart Allergies and Home Medications Allergies Coded Allergies: No Known Drug Allergies (Unverified , 11/18/17) Patient Home Medication List Home Medication List Reviewed: Yes Albuterol/Ipratropium (Combivent Respimat Inhal [place]) 4 Gm Aero, 1 PUFF IH Q4H PRN for SHORTNESS OF BREATH, (Reported) Entered as Reported by: SERAFIN MCNEIL on 11/18/17 1318 Atenolol (Atenolol) 50 Mg Tablet, 50 MG PO DAILY PRN for BP>110/60, (Reported) Entered as Reported by: SERAFIN MCNEIL on 11/18/17 1318 Budesonide/Formoterol Fumarate (Symbicort 160-4.5 Mcg Inhaler) 10.2 Gm Hfa.aer.ad, 2 PUFF IH BID PRN for SHORTNESS OF BREATH, (Reported) Entered as Reported by: SERAFIN MCNEIL on 11/18/17 1318 Calcium Carbonate/Vitamin D3 (Calcium 500 + Vit D3 400 Tab) 1 Each Tablet, 1 TAB PO 1200,2100, (Reported) Entered as Reported by: SERAFIN MCNEIL on 11/18/17 1318 Cyclosporine (Restasis Multidose) 5.5 Ml Drops, 1 DROP OU HS, (Reported) Entered as Reported by: SERAFIN MCNEIL on 11/18/17 1318 Gluc HCl/Csa/Rodríguez Hy/Hyalur AC (Glucosamine Chondroitin Cap) 1 Each Capsule, 1 CAP PO 1200,2100, (Reported) Entered as Reported by: SERAFIN MCNEIL on 11/18/17 131 Ipratropium/Albuterol Sulfate (Iprat-Albut 0.5-3(2.5) mg/3 ml) 3 Ml Ampul.neb, 3 ML IH Q4H PRN for SHORTNESS OF BREATH, (Reported) Entered as Reported by: SERAFIN MCNEIL on 11/18/17 131 Oxycodone HCl/Acetaminophen (Percocet 5-325 mg Tablet) 1 Each Tablet, 1 EACH PO Q4H Prescribed by: MARLI BRANDON on 11/25/17 07 Review of Systems Review of Systems Constitutional: see HPI Past Hcgkzbi-Kyyhkh-Jhzphj Hx Patient Social History Tobacco Use?: No Use of E-Cig and/or Vaping dev: No Substance use?: No Alcohol Use?: No Seasonal Allergies Seasonal Allergies: Yes Past Medical History Surgeries: Yes (T&A,bilat knee scope,CATARACTS, BACK, GANGLION CYST) Respiratory: Yes (MOSTLY ALLERGY RELATED) Sleep Apnea, COPD Currently Using CPAP: Yes (2L O2 NOC) Cardiac: Yes (HEART CATH 2010-CLEAR) Hypertension Neurological: No Reproductive Disorders: No Sexually Transmitted Disease: No HIV/AIDS: No Genitourinary: No Gastrointestinal: No Musculoskeletal: Yes (NUMBNESS RIGHT LEG, STENOSIS) Chronic Back Pain Endocrine: No HEENT: Yes (GLASSES) Cataract Loss of Vision: Bilateral Hearing Impairment: Denies Cancer: No Psychosocial: No Integumentary: No Blood Disorders: No Adverse Reaction/Blood Tranf: No (N/A) Family Medical History Empha FHx: emphysema 19 FATHER Physical Exam Vital Signs Vital Signs - First Documented 10/04/22 10:50 Pulse 98 Resp 20 B/P (MAP) 123/88 Pulse Ox 92 Capillary Refill : Height, Weight, BMI Height: 6'0.00" Weight: 326lbs. 6.0oz. 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 No dysarthria or facial droop. He has left-sided neglect. NIH 5) Skin: normal color, warm/dry Progress/Results/Core Measures Results/Orders Lab Results Laboratory Tests Test 10/04/22 10:47 10/04/22 10:48 10/04/22 10:53 Range/Units Glucometer 108 70-110 MG/DL White Blood Count 13.5 H 4.3-11.0 10^3/uL Red Blood Count 5.81 H 4.30-5.52 10^6/uL Hemoglobin 13.3 13.3-17.7 g/dL Hematocrit 42 40-54 % Mean Corpuscular Volume 73 L 80-99 fL Mean Corpuscular Hemoglobin 23 L 25-34 pg Mean Corpuscular Hemoglobin Concent 32 32-36 g/dL Red Cell Distribution Width 18.0 H 10.0-14.5 % Platelet Count 251 130-400 10^3/uL Mean Platelet Volume 9.2 9.0-12.2 fL Immature Granulocyte % (Auto) 0 % Neutrophils (%) (Auto) 71 42-75 % Lymphocytes (%) (Auto) 23 12-44 % Monocytes (%) (Auto) 6 0-12 % Eosinophils (%) (Auto) 0 0-10 % Basophils (%) (Auto) 0 0-10 % Neutrophils # (Auto) 9.6 H 1.8-7.8 10^3/uL Lymphocytes # (Auto) 3.0 1.0-4.0 10^3/uL Monocytes # (Auto) 0.7 0.0-1.0 10^3/uL Eosinophils # (Auto) 0.0 0.0-0.3 10^3/uL Basophils # (Auto) 0.0 0.0-0.1 10^3/uL Immature Granulocyte # (Auto) 0.1 0.0-0.1 10^3/uL Prothrombin Time 13.6 12.2-14.7 SEC INR Comment 1.0 0.8-1.4 Activated Partial Thromboplast Time 26 24-35 SEC D-Dimer 0.61 H 0.00-0.49 UG/ML Sodium Level 139 135-145 MMOL/L Potassium Level 4.9 3.6-5.0 MMOL/L Chloride Level 106 98-107 MMOL/L Carbon Dioxide Level 21 21-32 MMOL/L Anion Gap 12 5-14 MMOL/L Blood Urea Nitrogen 16 7-18 MG/DL Creatinine 0.94 0.60-1.30 MG/DL Estimat Glomerular Filtration Rate 89 BUN/Creatinine Ratio 17 Glucose Level 104 70-105 MG/DL Calcium Level 10.1 8.5-10.1 MG/DL Corrected Calcium 10.3 H 8.5-10.1 MG/DL Total Bilirubin 1.2 H 0.1-1.0 MG/DL Aspartate Amino Transf (AST/SGOT) 21 5-34 U/L Alanine Aminotransferase (ALT/SGPT) 18 0-55 U/L Alkaline Phosphatase 76 40-136 U/L Troponin I < 0.028 <0.028 NG/ML Total Protein 6.9 6.4-8.2 GM/DL Albumin 3.8 3.2-4.5 GM/DL Serum Test, Qualitative NEGATIVE Urine Color YELLOW Urine Clarity CLEAR Urine pH 6.0 5-9 Urine Specific [place] 1.020 1.016-1.022 Urine Protein NEGATIVE NEGATIVE Urine Glucose (UA) NEGATIVE NEGATIVE Urine Ketones NEGATIVE NEGATIVE Urine Nitrite NEGATIVE NEGATIVE Urine Bilirubin NEGATIVE NEGATIVE Urine Urobilinogen 1.0 < = 1.0 MG/DL Urine Leukocyte Esterase NEGATIVE NEGATIVE Urine RBC (Auto) NEGATIVE NEGATIVE Urine RBC NONE /HPF Urine WBC NONE /HPF Urine Squamous Epithelial Cells NONE /HPF Urine Crystals NONE /LPF Urine Bacteria NEGATIVE /HPF Urine Casts NONE /LPF Urine Mucus NEGATIVE /LPF Urine Culture Indicated NO My Orders Orders - BINH BALLARD DO Ct Head Wo (10/04/22 10:34) Cbc With Automated Diff (10/04/22 10:37) Protime With Inr (10/04/22 10:37) Partial Thromboplastin Time (10/04/22 10:37) Comprehensive Metabolic Panel (10/04/22 10:37) Fibrin Degradation Products (10/04/22 10:37) Troponin I [place] (10/04/22 10:37) Hcg,Qualitative Serum (10/04/22 10:37) Ua Culture If Indicated (10/04/22 10:37) Chest 1 View, Ap/Pa Only (10/04/22 10:37) Nothing By Mouth (10/04/22 Lunch) Accucheck Stat ONCE (10/04/22 10:37) Ed Iv/Invasive Line Start (10/04/22 10:37) Ed Iv/Invasive Line Start (10/04/22 10:37) Vital Signs Stroke Patient Q15M (10/04/22 10:37) Monitor-Rhythm Ecg Trace Only (10/04/22 10:37) Dysphagia Screening Tool Q10MX1 (10/04/22 10:37) I-Stat Bedside Testing (10/04/22 10:37) Tenecteplase (Tnkase) (10/04/22 11:00) Post Thrombolytic Adminstratio (10/04/22 10:49) Vital Signs Stroke Patient Q15M (10/04/22 11:02) Dysphagia Screening Tool Q10MX1 (10/04/22 11:02) Tenecteplase (Tnkase) (10/04/22 11:15) Ct Angio Head/Neck (10/04/22 11:12) Iohexol Injection (Omnipaque 350 Mg/Ml 1 (10/04/22 11:30) Received Contrast (Hold Metformin- Contr (10/04/22 11:30) Ns (Ivpb) (Sodium Chloride 0.9% Ivpb Bag (10/04/22 11:30) Iohexol Injection (Omnipaque 350 Mg/Ml 1 (10/04/22 11:45) Received Contrast (Hold Metformin- Contr (10/04/22 11:45) Ns (Ivpb) (Sodium Chloride 0.9% Ivpb Bag (10/04/22 11:45) Medications Given in ED Current Medications Medications Dose Ordered Sig/Elizabeth Route Start Time Stop Time Status Last Admin Dose Admin Iohexol 100 ml ONCE ONCE IV 10/04/22 11:30 10/04/22 11:31 DC 10/04/22 11:43 75 ML Sodium Chloride 100 ml ONCE ONCE IV 10/04/22 11:30 10/04/22 11:31 DC 10/04/22 11:44 100 ML Tenecteplase 25 mg ONCE ONCE IV 10/04/22 11:15 10/04/22 11:16 DC 10/04/22 11:06 25 MG Vital Signs/I&O 10/04/22 10/04/22 10:50 11:06 Pulse 98 110 Resp 20 B/P (MAP) 123/88 170/93 Pulse Ox 92 FSBG Bedside Testing Finger Stick Blood Glucose: 108 Critical Care Note Critical Care Total Time (minutes) 90 Departure Communication (Admissions) 1205: Spoke to Neuro Dr Leyva, Wishes images clouded bc if too distal in M2 segment they would not be able to intervene. I will put flight crew on standby. Pending call efrain from . Patient is stable post-tentctaplase. 1230: called back and accept transfer. I have notified flight crew. Impression Primary Impression: Acute right MCA stroke Disposition: XFER SHT-TRM HOSP Condition: Stable Departure-Patient Inst. Referrals: TYLER YEE MD (PCP/Family) Primary Care Physician BINH BALLARD DO Oct 04, 2022 10:58
[2022-10-04] MEDS ORDERED: TENECTEPLASE 50 MG VIAL IV ONE ×2 (11:00→11:15)
[2022-10-04 11:03] LABS: BASOPHILS % (AUTO) 0 % (0-10); EOSINOPHILS % (AUTO) 0 % (0-10); HEMATOCRIT 42 % (40-54); HEMOGLOBIN 13.3 g/dL (13.3-17.7); LYMPHOCYTES % (AUTO) 23 % (12-44); MEAN CORPUSCULAR HEMOGLOBIN 23 pg (25-34); MEAN CORPUSCULAR HGB CONC 32 g/dL (32-36); MEAN CORPUSCULAR VOLUME 73 fL (80-99); MEAN PLATELET VOLUME 9.2 fL (9.0-12.2); MONOCYTES # (AUTO) 0.7 10^3/uL (0.0-1.0); MONOCYTES % (AUTO) 6 % (0-12); NEUTROPHILS # (AUTO) 9.6 10^3/uL (1.8-7.8); NEUTROPHILS % (AUTO) 71 % (42-75); PLATELET COUNT 251 10^3/uL (130-400); WHITE BLOOD COUNT 13.5 10^3/uL (4.3-11.0)
[2022-10-04 11:04] LABS: BILIRUBIN,URINE NEGATIVE (NEGATIVE); CLARITY,URINE CLEAR; COLOR,URINE YELLOW; GLUCOSE, URINE (UA) NEGATIVE (NEGATIVE); KETONES,URINE NEGATIVE (NEGATIVE); LEUKOCYTE ESTERASE ,URINE NEGATIVE (NEGATIVE); NITRITE,URINE NEGATIVE (NEGATIVE); PROTEIN,URINE NEGATIVE (NEGATIVE)
[2022-10-04 11:13] LABS: ALBUMIN 3.8 GM/DL (3.2-4.5); CHLORIDE 106 MMOL/L (98-107); POTASSIUM 4.9 MMOL/L (3.6-5.0); SODIUM 139 MMOL/L (135-145)
[2022-10-04 11:14] LABS: CALCIUM 10.1 MG/DL (8.5-10.1)
[2022-10-04 11:15] LABS: GLUCOSE 104 MG/DL (70-105); PROTHROMBIN TIME PATIENT 13.6 SEC (12.2-14.7); TOTAL PROTEIN 6.9 GM/DL (6.4-8.2)
[2022-10-04 11:16] LABS: CARBON DIOXIDE 21 MMOL/L (21-32)
[2022-10-04 11:17] LABS: BILIRUBIN,TOTAL 1.2 MG/DL (0.1-1.0)
[2022-10-04 11:18] LABS: FIBRIN DEGRADATION PRODUCTS 0.61 UG/ML (0.00-0.49)
[2022-10-04 11:19] LABS: ALKALINE PHOSPHATASE 76 U/L (40-136); CREATININE SERUM 0.94 MG/DL (0.60-1.30); GFR ESTIMATED 89
[2022-10-04 11:20] LABS: BUN/CREATININE RATIO 17
[2022-10-04 11:20] LABS: BACTERIA,URINE NEGATIVE /HPF
[2022-10-04 11:22] LABS: ALANINE AMINOTRANSFERASE 18 U/L (0-55)
[2022-10-04] MEDS ORDERED: IOHEXOL 350 MG/ML 100 ML (OMNIPAQUE 350) VIAL IV ONE ×2 (11:30→11:45)
[2022-10-04] MEDS ORDERED: NS 100 ML (IVPB) BAG IV ONE ×2 (11:30→11:45)
[2022-10-04] MEDS ORDERED: HOLD METFORMIN - RECEIVED CONTRAST 20 ML VIAL IV SCH ×2 (11:30→11:45)
--- NOTE | 2022-10-04 12:04 | Diagnostic Imaging Report ---
CLINICAL INDICATION: Patient with left-sided weakness, slurred speech, and left-sided facial droop. Stroke protocol. EXAM: Portable chest x-ray upright view. COMPARISON: Chest x-ray dated 04/09/2014. FINDINGS: There is interval development of consolidation of the left midlung field and left lung base which may represent atelectasis versus infiltrates. There is blunting of left costophrenic angle region and left pleural effusion cannot be completely excluded. There is no pneumothorax. There is cardiomegaly with mild pulmonary vascular prominence centrally. IMPRESSION: 1: Interval development of consolidation involving left midlung field and left lung base which may represent atelectasis versus infiltrate. There is a possible left pleural effusion. 2: There is cardiomegaly with mild pulmonary vascular congestion centrally. Dictated by: Dictated on workstation # [id number]
--- NOTE | 2022-10-04 12:26 | Diagnostic Imaging Report ---
PROCEDURE: CT angiography of the head and CT angiography of the neck with and without contrast. TECHNIQUE: Contiguous noncontrast images were obtained from the skull base through the vertex. After intravenous contrast administration, helical CT angiography of the neck was performed. Source data was reformatted into 3D MIP projections. Delayed post contrast acquisition was also obtained. Auto Exposure Controls were utilized during the CT exam to meet ALARA standards for radiation dose reduction. INDICATION: 67-year-old male, left-sided weakness, slurred speech, left-sided facial droop. COMPARISON: Noncontrast CT head same day FINDINGS: CTA NECK: Aorta: The aortic arch is not included. Brachycephalic trunk as well as proximal aspect of bilateral common carotid arteries are not imaged. Right Common/Internal/External Carotid Artery: There is prominent calcification at the right carotid bulb with atherosclerotic plaque extending the bilateral internal and external carotid arteries. Tortuous course of the right internal carotid artery without significant stenosis or large vessel occlusion. Left Common/Internal/External Carotid Artery: Prominent calcification the carotid bifurcation. There is also calcification the origin internal and external carotid arteries. There appears to be likely approximately 50-70% narrowing at the proximal aspect of the left internal carotid artery. Remainder left internal carotid artery is tortuous but patent to the skull base. Vertebral arteries: Origin the vertebral arteries is not imaged. The visualized cervical portion the vertebral arteries appear relatively codominant. Appear to be patent to the skull base. Non-vascular: Visualized airway unremarkable. Lung apices not imaged. The visualized cervical spine alignment anatomic and unremarkable. Lower cervical spine not imaged. CTA HEAD: Anterior Circulation: The intracranial internal carotid arteries are patent. There is occlusive or nearly occlusive defect at the peripheral right middle cerebral artery positioned within the region of sylvian fissure. There is small amount of contrast opacification distal to this. Left middle cerebral artery patent and unremarkable. The anterior cerebral arteries are patent and without stenosis. Posterior Circulation: Both vertebral arteries terminating into the basilar artery. Basilar artery is of very small caliber. Left posterior to artery supplied via the posterior communicating artery. The right posterior communicating artery is also rather prominent. POST CONTRAST HEAD: Dural venous system with normal enhancement. No concerning enhancement on delayed post-contrast imaging. IMPRESSION: 1. High degree occlusive thrombus insular segment right middle cerebral artery. 2. Incomplete imaging CTA neck. Visualized segments demonstrate atherosclerotic changes carotid bulbs left greater than right. On the left, likely approximately 50% narrowing at the origin left internal carotid artery. 3. There is note made of somewhat small vertebral basilar vessels likely largely attributed to posterior cerebral arteries supplied via the anterior circulation. Critical findings Telephone call has been made to the emergency department, 11:50 AM. Dictated by: Dictated on workstation # [id number]
[2022-10-04] MEDS ORDERED: NS (IVPB) 250 ML ONE (13:14)
[2022-10-04 13:25] VITALS: BP 150/98
== END 2022-10-04 13:27 | disposition short-term general hospital (02) ==
LOC: EDUNIT# 10:32 → ER 10:33
DX: I63.511 Cerebral infarction due to unspecified occlusion or stenosis of right middle cerebral artery (principal); G47.30 Sleep apnea, unspecified; J44.9 Chronic obstructive pulmonary disease, unspecified; Z99.81 Dependence on supplemental oxygen; Z99.89 Dependence on other enabling machines and devices
CPT/HCPCS: 36415; 70450; 70496; 70498; 71045; 80053; 81000; 82947; 84484; 84703; 85025; 85379; 85610; 85730; 92977; 93041